=== PATIENT | male | born 2000 | race Caucasian/White ===

== ENCOUNTER 2021-12-29 11:36 | Emergency (ER) | payer OTHER ==
[~2021-12-29] VITALS: Ht 177.8 cm; Wt 68.0 kg
[2021-12-29] MEDS ORDERED: LIDO700A20 TOP (13:27)
[2021-12-29] MEDS ORDERED: CYCL10 PO (13:27)
[2021-12-29] MEDS ORDERED: NAPR500 PO (13:27)
== END 2021-12-29 13:46 | disposition home or self-care (01) ==
LOC: ER 11:36
DX: M54.50 Low back pain, unspecified (principal); M79.605 Pain in left leg
CPT/HCPCS: 96372; 99283-25; A9270; J1885

== ENCOUNTER 2022-09-06 09:45 | Day surgery (SDC) | payer OTHER ==
[~2022-09-06] VITALS: Ht 177.8 cm; Wt 71.6 kg
[2022-09-06] VITALS (8 sets, daily range): BP systolic 124–157; BP diastolic 59–99
[~2022-09-06 09:45] MED LIST: CYCL10 PO; LIDO700A20 TOP; NAPR500 PO
[2022-09-06] MEDS ORDERED: IBUP800 PO (10:25)
[2022-09-06] MEDS ORDERED: Acetaminophen650 M1 PO (10:25)
[2022-09-06] MEDS ORDERED: Norco 5-325 Ta1 EACH PO (10:50)
--- NOTE | 2022-09-06 11:32 | NUR ---
PRE-OP NOTE PT A&OX4, BREATHING RA, VSS, NO COMPLAINTS. Patient confirms NPO status and agrees with scheduled surgery.PT MOBILIZES C CRUTCHES, CRUTCHES STORED IN BRONCH ROOM IN DSU. SOFT CAST REMOVED BY DR LOFTON IN DSU FROM R ANKLE. JEWLRY STORED IN PT BELONGINGS BAG BELOW STRETCHER. Pre-Op teaching done. Pt verbalizes understanding. Patient States Post-Procedure ride home has been arranged.
--- NOTE | 2022-09-06 13:53 | NUR ---
DISCHARGE NOTE PT A&OX4, VSS, BREATHING RA, TOLERATING PO FLUIDS AND FOOD. MOM AT BEDSIDE. NO COMPLAINTS. Discharge instructions reviewed with patient. Patient verbalizes understanding. Copy given to patient to take home. Dressing to procedure site clean, dry, intact with no visible drainage, swelling, erythema or bruising noted. TOES TO R FOOT ARE PWD, CAP REFILL BRISK. PT ABLE TO WIGGLE TOES. Discharged via wheelchair to private car for ride home.
== END 2022-09-06 14:00 | disposition home or self-care (01) ==
LOC: ORSCMMR 09:45
PROVIDERS: Podiatrist Foot & Ankle Surgery
PROC: 0QSG04Z Reposition Right Tibia with Internal Fixation Device, Open Approach (ICD-10-PCS; principal; 2022-09-06 11:00)
DX: S82.51XA Displaced fracture of medial malleolus of right tibia, initial encounter for closed fracture (principal); V29.39XA Other motorcycle (driver) (passenger) injured in unspecified nontraffic accident, initial encounter; F17.210 Nicotine dependence, cigarettes, uncomplicated
CPT/HCPCS: A9270; C1713; C1769; J0690; J1100; J1170; J2250; J2405; J2704; J2795; J3010; J7120